=== PATIENT | male | born 1995 | race Caucasian/White ===

== ENCOUNTER 2018-06-15 16:32 | Emergency (ER) | payer MEDICAID, OTHER ==
[~2018-06-15] VITALS: Ht 188 cm; Wt 70.3 kg
[2018-06-15] MEDS ORDERED: SODIUM CHLORIDE 0.9% 1,000 ML IVB ONE (16:40)
[2018-06-15] MEDS ORDERED: DEXTROSE 50% SYRINGE 50 ML IV ONE ×2 (16:41→17:43)
[2018-06-15] MEDS ORDERED: ACTIVATED CHARCOAL 50 GM/240 ML SOL NG ONE (16:45)
[2018-06-15] MEDS ORDERED: ONDANSETRON HCL 4 MG/2 ML VIAL ONE (16:46)
[2018-06-15] MEDS ORDERED: ONDANSETRON HCL 4 MG/2 ML VIAL IV ONE (17:00)
[2018-06-15] MEDS ORDERED: DEXTROSE (50%) 50ML SYRG IV ONE ×2 (17:00→17:45)
[2018-06-15 17:04] LABS: Basophils # (auto) 0 uL; Basophils % (auto) 0.4 % (0.0-2.0); Eosinophils # (auto) 0.1 uL; Eosinophils % (auto) 1.7 % (0.0-7.0); Hematocrit 38.5 % (41.0-53.0); Hemoglobin 13.2 g/dL (13.5-17.5); Lymphocytes # (auto) 2.6 uL; Lymphocytes % (auto) 38.4 % (10.0-50.0); Mean Corpuscular Hemoglobin 28.8 pg (28.0-32.0); Mean Corpuscular Hgb Conc. 34.2 g/dL (32.0-36.0); Mean Corpuscular Volume 84.1 fL (80.0-100.0); Monocytes # (auto) 0.5 uL; Monocytes % (auto) 7.7 % (0.0-12.0); Neutrophils # (auto) 3.4 uL; Neutrophils % (auto) 51.8 % (37.0-80.0); Nucleated Red Blood Cells % 0.1 %; Platelet Count (auto) 175 10^3/uL (140-450); Red Blood Cells 4.57 10^6/uL (4.5-5.90); Red Cell Distribution Width 12.5 % (11.8-14.3); White Blood Cell 6.6 10^3/uL (4.4-10.8)
[2018-06-15 17:18] LABS: Acetaminophen < 2.0 ug/mL (10-30); Salicylate < 1.7 mg/dL (2.8-20.0)
[2018-06-15 17:19] LABS: Albumin 3.4 g/dL (3.4-5.0); Calcium 8.3 mg/dL (8.5-10.1)
[2018-06-15 17:25] LABS: Bilirubin, Total 0.2 mg/dL (0.2-1.0); Total Protein 5.8 g/dL (6.4-8.2)
[2018-06-15 17:28] LABS: Potassium 2.6 mmol/L (3.5-5.1)
[2018-06-15] MEDS ORDERED: SODIUM CHLORIDE 0.9% 1,000 ML IV ONE (17:30)
[2018-06-15 17:35] LABS: BUN/Creatinine Ratio 19.4
[2018-06-15] MEDS: POTASSIUM CHL 20MEQ/100ML 100 ML IV SCH ×2 (17:42→20:02)
[2018-06-15] MEDS ORDERED: DEXTROSE 10% 1,000 ML IV ONE (17:45)
[2018-06-15 18:46] LABS: Urine Bacteria NONE SEEN /hpf (None Seen); Urine Blood Negative /uL (Negative); Urine Specific Gravity 1.007 (1.001-1.035); Urine WBC 1 /hpf (0 - 3)
[2018-06-15 18:48] LABS: Amphetamine Screen, Urine NEGATIVE (NEGATIVE); Barbiturate Scree,Urine NEGATIVE (NEGATIVE); Benzodiazephine Screen, Urine NEGATIVE (NEGATIVE); Cannabinoid Screen, Urine NEGATIVE (NEGATIVE); Cocaine Screen, Urine NEGATIVE (NEGATIVE); Opiate Scree,Urine NEGATIVE (NEGATIVE); Phencyclidine Screen, Urine NEGATIVE (NEGATIVE)
[2018-06-16 12:50] VITALS: BP 101/60
== END 2018-06-16 13:11 ==
LOC: EDBD 16:32 → ER 16:42
DX: G93.41 Metabolic encephalopathy (principal); R45.851 Suicidal ideations
CPT/HCPCS: 36415; 70450; 71045; 80053; 80307; 80320; 80329; 81001; 82962; 85025; 94761; 96361; 96374; 96375; 96376; 99285; J2405; J3480; J7030; J7042